=== PATIENT | male | born 1965 | race Caucasian/White ===

== ENCOUNTER → 2017-04-19 | Outpatient (CLI) | payer BC ==
[~2017-04-19] MED LIST: VICODIN 500 MG-1 TAB PO
== END | disposition home or self-care (01) ==
LOC: LAB 16:07
DX: Z12.5 Encounter for screening for malignant neoplasm of prostate (principal); N40.1 Benign prostatic hyperplasia with lower urinary tract symptoms

== ENCOUNTER 2020-05-26 22:29 | Emergency (ER) | payer BC ==
[~2020-05-26] VITALS: Ht 185.4 cm; Wt 108.9 kg
[2020-05-26 22:36] VITALS: BP 162/85
== END 2020-05-26 23:37 | disposition home or self-care (01) ==
LOC: ED 22:29
DX: S00.03XA Contusion of scalp, initial encounter (principal); W19.XXXA Unspecified fall, initial encounter; Y93.89 Activity, other specified; Y92.89 Other specified places as the place of occurrence of the external cause; Y99.8 Other external cause status